=== PATIENT | male | born 1955 | race Caucasian/White ===

== ENCOUNTER 2024-09-26 12:01 | Emergency (ER) | payer BC, MEDICARE | END 2024-09-26 14:01 | disposition home or self-care (01) | LOC: JP.ED 12:01 | DX: S50.861A Insect bite (nonvenomous) of right forearm, initial encounter (principal); W57.XXXA Bitten or stung by nonvenomous insect and other nonvenomous arthropods, initial encounter; Y93.89 Activity, other specified | CPT/HCPCS: 99282; 99283 ==